=== PATIENT | female | born 1985 | race African-American/Black ===

== ENCOUNTER 2016-08-17 11:00 | Emergency (ER) | payer MEDICAID ==
[~2016-08-17] VITALS: Ht 162.6 cm; Wt 65.0 kg
[~2016-08-17 11:00] MED LIST: FLUO10CA63 PO; OMEP20CA4 PO; PEPCID; PROZAC
[2016-08-17 11:57] LABS: BASOPHILS % 0.8 % (0.0-2.0); HEMATOCRIT. 37.5 % (36.0-48.0); HEMOGLOBIN. 11.7 g/dL (12.0-16.0); LYMPHOCYTES % 14.3 % (20.0-50.0); MEAN CORPUSCULAR VOLUME 73.5 fL (81.0-99.0); MEAN PLATELET VOLUME 8.1 fl (7.4-10.4); MONOCYTES % 5.7 % (2.0-8.0); NEUTROPHILS % 79.2 % (40.0-76.0); PLATELET 269 x1000/uL (130-400); RED BLOOD CELL COUNT 5.09 mill/uL (4.2-5.4); RED CELL DISTRIBUTION WIDTH 14.8 % (11.6-14.6)
[2016-08-17 11:58] LABS: CHLORIDE 111 mEq/L (98-107)
[2016-08-17 12:01] LABS: CARBON DIOXIDE 25 mEq/L (21-32); PROTHROMBIN TIME 10.5 sec
[2016-08-17 12:02] LABS: CLARITY URINE CLEAR (CLEAR); COLOR URINE YELLOW (YELLOW); GLUCOSE URINE NEGATIVE (NEGATIVE); KETONES URINE NEGATIVE (NEGATIVE); LEUKOCYTE ESTERASE URINE NEGATIVE (NEGATIVE); NITRITE URINE NEGATIVE (NEGATIVE); OCCULT BLOOD URINE 2+ (NEGATIVE); PH URINE 5.5 (4.5-8.0); PROTEIN URINE NEGATIVE (NEGATIVE); SPECIFIC GRAVITY URINE 1.011 (1.005-1.030); UROBILINOGEN URINE 0.2 E.U./dL (0.2-1.0)
[2016-08-17] MEDS ORDERED: KETOROLAC 60MG/2ML VIAL IM ONE (12:30)
[2016-08-17 15:21] VITALS: BP 119/59
== END 2016-08-17 15:42 | disposition home or self-care (01) ==
LOC: ER 11:01
DX: M54.89 Other dorsalgia (principal); R11.2 Nausea with vomiting, unspecified; R23.2 Flushing
CPT/HCPCS: 36415; 74176; 80053; 81001; 83605; 83690; 85025; 85610; 96372; 99285; J1885; Z7610

== ENCOUNTER 2016-09-15 14:04 | Emergency (ER) | payer MEDICAID ==
[~2016-09-15] VITALS: Ht 149.9 cm; Wt 69.0 kg
[2016-09-15] MEDS ORDERED: ONDANSETRON 4MG ODT PO ONE ×2 (19:00→21:00)
[2016-09-15] MEDS ORDERED: KETOROLAC 60MG/2ML VIAL IM ONE (19:00)
[2016-09-15] MEDS ORDERED: HYDROCODONE/ACETAMINOPHEN 5/325MG TABLET PO ONE (19:00)
[2016-09-15] MEDS ORDERED: MORPHINE SULFATE 10 MG/ML CPJ IM ONE (21:00)
[2016-09-15 23:02] VITALS: BP 128/74
== END 2016-09-15 23:03 | disposition home or self-care (01) ==
LOC: ER 17:49
DX: S16.1XXA Strain of muscle, fascia and tendon at neck level, initial encounter (principal); S46.911A Strain of unspecified muscle, fascia and tendon at shoulder and upper arm level, right arm, initial encounter; S56.912A Strain of unspecified muscles, fascia and tendons at forearm level, left arm, initial encounter; K21.9 Gastro-esophageal reflux disease without esophagitis; F32.9 Major depressive disorder, single episode, unspecified; F12.10 Cannabis abuse, uncomplicated; Y08.89XA Assault by other specified means, initial encounter; V03.10XA Pedestrian on foot injured in collision with car, pick-up truck or van in traffic accident, initial encounter; Y93.89 Activity, other specified; Y92.488 Other paved roadways as the place of occurrence of the external cause
CPT/HCPCS: 71010; 72125; 73030; 73090; 73110; 81025; 96372; 99284; J1885; J2270; Q0162; Z7610